=== PATIENT | male | born 1935 | race Two or more races ===

== ENCOUNTER 2022-10-02 16:41 | Emergency (ER) | payer OTHER ==
[~2022-10-02] VITALS: Ht 177.8 cm; Wt 64.0 kg
[~2022-10-02 16:41] MED LIST: AMLO-489 PO; GLIP-110 PO; LISI40TA11 PO; LOVA40TA72 PO
[2022-10-02] MEDS ORDERED: HYDROcodone-ACET 10/325MG TAB PO ONE (17:00)
[2022-10-02 17:06] VITALS: BP 135/77
[2022-10-02] MEDS ORDERED: HYDR-4902 PO (20:08)
[2022-10-02] MEDS ORDERED: IBUP600T27 PO (20:08)
== END 2022-10-03 01:33 | disposition home or self-care (01) ==
LOC: ER 16:41
DX: S70.02XA Contusion of left hip, initial encounter (principal); S80.02XA Contusion of left knee, initial encounter; S20.212A Contusion of left front wall of thorax, initial encounter; I10 Essential (primary) hypertension; E11.9 Type 2 diabetes mellitus without complications; E78.5 Hyperlipidemia, unspecified; Z79.899 Other long term (current) drug therapy; W01.0XXA Fall on same level from slipping, tripping and stumbling without subsequent striking against object, initial encounter; Y93.89 Activity, other specified; Y92.89 Other specified places as the place of occurrence of the external cause; Y99.8 Other external cause status
CPT/HCPCS: 71101; 72170; 73560; 82962

== ENCOUNTER 2022-12-05 08:16 | Emergency (ER) | payer OTHER ==
[~2022-12-05] VITALS: Ht 180.3 cm; Wt 65.0 kg
[~2022-12-05 08:16] MED LIST changes: +HYDR-4902 PO; +IBUP600T27 PO
[2022-12-05 10:13] VITALS: BP 119/56
[2022-12-05] MEDS ORDERED: ACETAMINOPHEN 500 MG TAB PO ONE (11:00)
[2022-12-05 11:46] LABS: Basophils # (auto) 0 10 ^3/uL (0-0.2); Basophils % (auto) 0.2 % (0.0-2.0); Eosinophils # (auto) 0 10 ^3/uL (0-0.8); Eosinophils % (auto) 0.3 % (0.0-7.0); Hematocrit 34.1 % (41.0-53.0); Hemoglobin 11.5 g/dL (13.5-17.5); Lymphocytes # (auto) 1.3 10 ^3/uL (0.4-5.4); Lymphocytes % (auto) 14.1 % (10.0-50.0); Mean Corpuscular Hemoglobin 33.5 pg (28.0-32.0); Mean Corpuscular Hgb Conc. 33.6 g/dL (32.0-36.0); Mean Corpuscular Volume 99.8 fL (80.0-100.0); Monocytes # (auto) 1.1 10 ^3/uL (0-1.3); Neutrophils # (auto) 6.5 10 ^3/uL (1.6-8.6); Neutrophils % (auto) 73.4 % (37.0-80.0); Red Blood Cells 3.42 10^6/uL (4.5-5.90); Red Cell Distribution Width 12.9 % (11.8-14.3); White Blood Cell 8.9 10^3/uL (4.4-10.8)
[2022-12-05] MEDS ORDERED: PIPERACILLIN-TAZOB 3.375GM 100 ML IV ONE (12:00)
[2022-12-05] MEDS ORDERED: VANCOMYCIN 1GM/250ML 250 ML IV ONE (12:00)
[2022-12-05] MEDS ORDERED: SODIUM CHLORIDE 0.9% 1,000 ML IV ONE (12:00)
[2022-12-05 12:24] LABS: Calcium 8.2 mg/dL (8.5-10.1); Potassium 4.1 mmol/L (3.5-5.1)
[2022-12-05 12:30] LABS: Albumin 3.6 g/dL (3.4-5.0); BUN/Creatinine Ratio 20.5 (10.0-20.0); Bilirubin, Total 0.8 mg/dL (0.2-1.0); Total Protein 6.4 g/dL (6.4-8.2)
[2022-12-05] MEDS ORDERED: CEPH-510 PO (12:59)
[2022-12-05] MEDS ORDERED: ACET1CAP14 PO (12:59)
== END 2022-12-05 11:07 | disposition home or self-care (01) ==
LOC: ER 08:16
DX: L03.115 Cellulitis of right lower limb (principal); Z88.6 Allergy status to analgesic agent; E11.9 Type 2 diabetes mellitus without complications; E78.5 Hyperlipidemia, unspecified; I10 Essential (primary) hypertension
CPT/HCPCS: 36415; 73610; 80053; 82962; 83605; 84550; 85025; 87040; 96365; 96366; 96368; 99284; J2543; J3370; J7030